=== PATIENT | male | born 1990 | race Caucasian/White ===

== ENCOUNTER 2016-08-09 07:24 | Emergency (ER) | payer MEDICAID ==
[~2016-08-09] VITALS: Ht 162.6 cm; Wt 60.8 kg
[2016-08-09 08:18] LABS: CALCIUM 8.9 mg/dL (8.5-10.1); CARBON DIOXIDE 27.9 mmol/L (21-32); CHLORIDE SERUM 101 mmol/L (98-107); CREATININE SERUM 0.9 mg/dL (0.7-1.3); GFR1 > 60 mL/min; GLUCOSE SERUM 96 mg/dL (74-106); POTASSIUM SERUM 3.7 mmol/L (3.5-5.1); SODIUM SERUM 138 mmol/L (136-145)
[2016-08-09 08:19] LABS: PLATELET COUNT 204 x10^3mcL (130-400); RED CELL DISTRIBUTION WIDTH 11.7 % (11.5-14.5)
[2016-08-09 08:23] LABS: ALBUMIN 4.3 g/dL (3.4-5.0); ALKALINE PHOSPHATASE 95 U/L (46-116); ALT/SGPT 50 U/L (16-63); AST/SGOT 39 U/L (15-37); BILIRUBIN TOTAL 0.8 mg/dL (0.20-1.00); TOTAL PROTEIN, SERUM 7.1 g/dL (6.4-8.2)
[2016-08-09 09:16] LABS: MONOCYTE 10 % (0-7); SEGMENTED NEUTROPHILS 36 % (37-75)
[2016-08-09 09:17] LABS: BAND NEUTROPHIL 0 % (0-10); BASOPHIL 0 % (0-2); PLATELET MORPHOLOGY PLATELETS NORMAL; rbc morphology (normal/abnorm) ABNORMAL (NORMAL)
[2016-08-09 10:16] VITALS: BP 112/67
== END 2016-08-09 10:16 | disposition home or self-care (01) ==
LOC: ED 07:24
PROVIDERS: Emergency Medicine
DX: S20.211A Contusion of right front wall of thorax, initial encounter (principal); S30.1XXA Contusion of abdominal wall, initial encounter; G45.9 Transient cerebral ischemic attack, unspecified; Z79.891 Long term (current) use of opiate analgesic; V89.2XXA Person injured in unspecified motor-vehicle accident, traffic, initial encounter; Y93.89 Activity, other specified; Y92.89 Other specified places as the place of occurrence of the external cause; Y99.8 Other external cause status
CPT/HCPCS: 36415; Q9967

== ENCOUNTER 2016-09-11 22:25 | Emergency (ER) | payer SELFPAY ==
[2016-09-12 00:12] VITALS: BP 133/90
== END 2016-09-12 00:12 | disposition left against medical advice (07) ==
LOC: ED 22:25
DX: Z53.21 Procedure and treatment not carried out due to patient leaving prior to being seen by health care provider (principal)

== ENCOUNTER 2016-09-15 18:30 | Emergency (ER) | payer SELFPAY ==
[2016-09-15 20:06] VITALS: BP 115/78
== END 2016-09-15 20:06 | disposition home or self-care (01) ==
LOC: ED 18:30
DX: R31.9 Hematuria, unspecified (principal); E78.00 Pure hypercholesterolemia, unspecified

== ENCOUNTER 2017-10-28 21:38 | Emergency (ER) | payer OTHER ==
[~2017-10-28] VITALS: Ht 165.1 cm; Wt 59.9 kg
[2017-10-28 21:45] VITALS: BP 130/70; Ht 165.1 cm; Wt 59.9 kg
== END 2017-10-29 00:59 | disposition left against medical advice (07) ==
LOC: ED 21:38
DX: Z53.21 Procedure and treatment not carried out due to patient leaving prior to being seen by health care provider (principal)